=== PATIENT | male | born 1950 | race Caucasian/White ===

== ENCOUNTER 2017-08-20 08:00 | Outpatient (RCR) | END 2017-08-21 | LOC: NEWBEG 08:00 | PROVIDERS: ATTEND Psychiatry & Neurology Psychiatry | DX: F33.2 Major depressive disorder, recurrent severe without psychotic features (principal); F41.9 Anxiety disorder, unspecified | CPT/HCPCS: 90792; 90837; 99213 ==

== ENCOUNTER 2017-09-17 10:00 | Outpatient (RCR) | END 2017-09-20 23:59 | LOC: NEWBEG 10:00 | PROVIDERS: ATTEND Psychiatry & Neurology Psychiatry | DX: F33.2 Major depressive disorder, recurrent severe without psychotic features (principal); F41.9 Anxiety disorder, unspecified | CPT/HCPCS: 90837; 99213 ==

== ENCOUNTER 2017-10-11 11:00 | Outpatient (RCR) | END 2017-10-21 23:59 | LOC: NEWBEG 11:00 | PROVIDERS: ATTEND Psychiatry & Neurology Psychiatry | DX: F33.2 Major depressive disorder, recurrent severe without psychotic features (principal); F41.9 Anxiety disorder, unspecified | CPT/HCPCS: 90837 ==

== ENCOUNTER 2017-11-15 08:30 | Outpatient (RCR) | END 2017-11-20 23:59 | LOC: NEWBEG 08:30 | PROVIDERS: ATTEND Psychiatry & Neurology Psychiatry | DX: F33.2 Major depressive disorder, recurrent severe without psychotic features (principal); F41.9 Anxiety disorder, unspecified | CPT/HCPCS: 90837; 99213 ==

== ENCOUNTER 2017-12-17 09:30 | Outpatient (RCR) | END 2017-12-21 23:59 | LOC: NEWBEG 09:30 | PROVIDERS: ATTEND Psychiatry & Neurology Psychiatry | DX: F33.2 Major depressive disorder, recurrent severe without psychotic features (principal); F41.9 Anxiety disorder, unspecified | CPT/HCPCS: 90837; 99213 ==

== ENCOUNTER 2018-01-14 10:30 | Outpatient (RCR) | END 2018-01-21 23:59 | LOC: NEWBEG 10:30 | PROVIDERS: ATTEND Psychiatry & Neurology Psychiatry | DX: F33.2 Major depressive disorder, recurrent severe without psychotic features (principal); F41.9 Anxiety disorder, unspecified | CPT/HCPCS: 90837; 99213 ==

== ENCOUNTER 2018-02-04 10:00 | Outpatient (RCR) | payer OTHER | END 2018-02-20 23:59 | LOC: NEWBEG 10:00 | PROVIDERS: ATTEND Psychiatry & Neurology Psychiatry | DX: F33.2 Major depressive disorder, recurrent severe without psychotic features (principal); F41.9 Anxiety disorder, unspecified | CPT/HCPCS: 90837; 99213 ==

== ENCOUNTER 2018-08-19 11:50 | Outpatient (RCR) | END 2018-08-21 23:59 | LOC: NEWBEG 11:50 | PROVIDERS: ATTEND Psychiatry & Neurology Psychiatry | DX: F33.2 Major depressive disorder, recurrent severe without psychotic features (principal); F41.9 Anxiety disorder, unspecified | CPT/HCPCS: 90792; 90837; 99213 ==

== ENCOUNTER 2018-09-20 09:00 | Outpatient (RCR) | END 2018-09-20 23:59 | LOC: NEWBEG 09:00 | PROVIDERS: ATTEND Psychiatry & Neurology Psychiatry | DX: F33.2 Major depressive disorder, recurrent severe without psychotic features (principal); F41.9 Anxiety disorder, unspecified | CPT/HCPCS: 90837; 99213 ==

== ENCOUNTER 2018-10-18 11:00 | Outpatient (RCR) | END 2018-10-21 23:59 | LOC: NEWBEG 11:00 | PROVIDERS: ATTEND Psychiatry & Neurology Psychiatry | DX: F33.2 Major depressive disorder, recurrent severe without psychotic features (principal); F41.9 Anxiety disorder, unspecified | CPT/HCPCS: 90834; 90837; 99213 ==

== ENCOUNTER 2019-01-20 11:30 | Outpatient (RCR) | END 2019-01-21 23:59 | LOC: NEWBEG 11:30 | PROVIDERS: ATTEND Psychiatry & Neurology Psychiatry | DX: F33.2 Major depressive disorder, recurrent severe without psychotic features (principal); F41.9 Anxiety disorder, unspecified | CPT/HCPCS: 90837; 99213 ==